=== PATIENT | female | born 1985 | race Caucasian/White ===

== ENCOUNTER 2019-01-23 05:32 | Emergency (ER) | payer SELFPAY ==
[2019-01-23 05:40] VITALS: BMI 30.9
[2019-01-23] MEDS ORDERED: SODIUM CHLORIDE 1,000 ML IV ONE ×2 (05:55→06:41)
--- NOTE | 2019-01-23 05:56 | PDOC ---
History of Present Illness - General Chief Complaint: Pain Stated Complaint: FEVER X 4 DAYS, THROAT,EAR PAIN, BODY ACHES Time Seen by Provider: 01/23/19 05:43 History Source: Patient Exam Limitations: No Limitations - History of Present Illness Initial Comments: 01/23/19 05:56 This is a 33-year-old female who comes in complaining of 4 days of headache, body aches, fever and not feeling well. Patient took 2 extra strength bear prior to coming in and here in the emergency room was sweating profusely but afebrile. Patient does spend a fair amount timeout side in a park with her son. Patient denies any cough congestion, nausea, vomiting or diarrhea. Patient is otherwise healthy. Allergies: as per nursing notes Past Medical History: none Social history: Lives with family. No smoking. No alcohol. No illicit drugs. Surgical history: None General: + fevers or chills, no weakness, no weight loss HEENT: No change in vision. No sore throat,. No ear pain CardioVascular: no chest discomfort. No shortness of breath Respiratory:No cough, or wheezing. Gastrointestinal: no nausea, vomiting, diarrhea or constipation, No rectal bleeding Genitourinary: No dysuria, hematuria, or frequency Musculoskeletal: No joint or muscle pain or swelling, + body aches. Neurologic: + headache, no vertigo, dizziness or loss of consciousness Psychiatric: nor depression Skin: No rashes or easy bruising Endocrine: no increased thirst or abnormal weight change Allergic: no skin or latex allergy All other systems reviewed and normal Exam: General: Well-nourished well-developed individual, no acute distress HEENT: Throat: Normal, tonsils normal, no erythema or exudate Neck: Supple, no meningeal signs, no lymphadenopathy Eyes::Pupils equal reactive and round, extraocular motion intact Chest: Nontender to palpation Cardiac: S1-S2 normal, regular rate and rhythm, no murmurs rubs or gallops Respiratory: Lungs clear to auscultation bilateral Abdomen: Soft, nondistended, normal bowel sounds, there is no tenderness on palpation diffusely Extremities: Warm, dry, no cyanosis, clubbing, or edema Skin: No rashes Neuro: Alert and oriented x3, CN II - XII intact, nonfocal exam with normal strength, normal sensation, normal reflexes, normal gait, Psych: Normal mood and affect Assessment and plan: This is a 33-year-old female who comes in complaining of body aches headache and fever. Patient workup initiated including CBC, comp, blood cultures, urine, urine cultures, Lyme and large ecchymosis titers. Patient has no meningeal signs on my exam so LP not done We'll give patient a liter fluid 07:00 Care of this patient was transferred to Dr. Do at 7 AM. Case discussed in detail with oncoming Emergency Physician including history, physical exam and ancillary studies. Oncoming Emergency Physician has assumed care for the patient and will complete the evaluation and treatment. Patient is aware of the plan. Pt is clinically unchanged and stable. 01/23/19 20:48 Past History - Past Medical History Allergies/Adverse Reactions: Allergies Allergy/AdvReac Type Severity Reaction Status Date / Time No Known Allergies Allergy Verified 01/23/19 05:37 Home Medications: Ambulatory Orders Cephalexin Monohydrate [Keflex -] 500 mg PO BID #14 capsule 01/23/19 COPD: No - Suicide/Smoking/Psychosocial Hx Smoking History: Never smoked Have you smoked in the past 12 months: No Information on smoking cessation initiated: No Hx Alcohol Use: No Drug/Substance Use Hx: No Substance Use Type: None *Physical Exam - Vital Signs Last Vital Signs Temp Pulse Resp BP Pulse Ox 98.5 F 94 H 16 92/57 L 100 01/23/19 05:38 01/23/19 05:38 01/23/19 05:38 01/23/19 05:38 01/23/19 05:38 ED Treatment Course - LABORATORY CBC & Chemistry Diagram: 01/23/19 06:42 01/23/19 06:42 *DC/Admit/Observation/Transfer Diagnosis at time of Disposition: UTI (urinary tract infection) - Discharge Dispostion Disposition: HOME Condition at time of disposition: Stable - Prescriptions Prescriptions: Cephalexin Monohydrate [Keflex -] 500 mg PO BID #14 capsule - Referrals - Patient Instructions Printed Discharge Instructions: DI for Urinary Tract Infection (UTI) Additional Instructions: You have been given a copy of your workup including your blood work, urine work and CAT scan of the head. Your urine demonstrates that you have a urinary tract infection. At this time, I have a low suspicion for meningitis. I suspect her symptoms are secondary to urinary tract infection. However, if you have worsening or uncontrollable headaches and persistent high fevers despite the antibiotics, please call your doctor or return to the ER. It may take several days before you see improvement in your symptoms. It is very important that you complete your antibiotics. You will take 500 mg of cephalexin every 12 hours for one week. Drink plenty of water. Take 600 mg of Motrin every 6 hours as needed for fever. Your blood work also demonstrates some elevated liver function tests. This may potentially be the result of a fatty liver. Please bring these copy of the results to your doctor for further management. - Post Discharge Activity
[2019-01-23] MEDS ORDERED: KETOROLAC TROMETHAMINE 30 MG/1 ML VIAL IVPUSH ONE (06:39)
[2019-01-23] MEDS ORDERED: ACETAMINOPHEN 1000 MG/100 ML VIAL (NON FORMULARY) IVPB ONE (07:41)
--- NOTE | 2019-01-23 07:42 | PDOC ---
*Physical Exam - Vital Signs Last Vital Signs Temp Pulse Resp BP Pulse Ox 98.5 F 84 16 101/59 L 100 01/23/19 05:38 01/23/19 06:42 01/23/19 06:42 01/23/19 06:42 01/23/19 06:42 ED Treatment Course - LABORATORY CBC & Chemistry Diagram: 01/23/19 06:42 01/23/19 06:42 - RADIOLOGY Radiology Studies Ordered: Category Date Time Status HEAD CT WITHOUT CONTRAST [CT] Stat CT Scan 01/23/19 07:41 Ordered - Medications Given in the ED: ED Medications Discontinued Medications Generic Name Dose Route Start Last Admin Trade Name Freq PRN Reason Stop Dose Admin Sodium Chloride 1,000 mls @ 1,000 mls/hr 01/23/19 05:55 01/23/19 06:02 Normal Saline - IV 01/23/19 06:54 1,000 mls/hr .Q1H ONE Administration Sodium Chloride 1,000 mls @ 1,000 mls/hr 01/23/19 06:41 01/23/19 06:44 Normal Saline - IV 01/23/19 07:40 1,000 mls/hr .Q1H ONE Administration Medical Decision Making - Medical Decision Making 01/23/19 09:34 Sign-out received from outgoing Emergency Physician Dr. Chaudhry Pt interviewed and examined Ancillary studies reviewed Case discussed in detail with oncoming Emergency Physician including history, physical exam and ancillary studies. Vital Signs Temp Pulse Resp BP Pulse Ox 98.5 F 84 16 101/59 L 100 01/23/19 05:38 01/23/19 06:42 01/23/19 06:42 01/23/19 06:42 01/23/19 06:42 This is a 33-year-old female patient with prior history of urinary tract infection signed out to me for 4 days of fever Tmax 102, body aches, tension- like headache particularly worse the posterior and occasional neck and back pain. The patient has also significant outdoor exposure as she is often in the park with her family. The patient expresses concerns for potential meningitis. She states that she had a friend who had from meningitis earlier when she was younger. When I had examined and spoke to the patient. The patient had no neck stiffness or other clinical symptoms of meningitis at this time. I did discuss that the symptoms could potentially represent meningitis, however, I have low clinical suspicion. Patient reports also some urinary retention. Denies flank pain. Patient is neurologically intact and in no distress. She is ambulatory without difficulty. The patient has no headache at this time after treatment with aspirin at home and Tylenol by me in the ER. Given the relief of headache and no fever, I advised patient that I suspected that she low likelihood for meningitis area however, I did state that if the symptoms worsen, that we should potentially think of a lumbar puncture. However, at this time, the risks of and lumbar puncture would outweigh the benefit. After lengthy discussion with the patient, with shared decision-making, we both agree that we would defer lumbar puncture. When the results were reviewed. He had noted that the patient had elevated LFTs which I suspect is secondary to fatty liver disease. Patient has no right upper quadrant or abdominal pain. No nausea or vomiting. I am not concerned for GI pathology at this time. However, patient does have 3+ leukocyte and WBC 119 the urine as well as bacteria in the urine. Given her urinary retention and her fevers, I suspect that the urinary tract infection is the likely source of her symptoms. I will treat with cephalexin 500 mg every 12 hours for one week. I advised patient that we will call her with the culture and tick-borne results. The patient feels comfortable with the plan and she would like to go home with cephalexin and follow up with PMD. I discussed the physical exam findings, ancillary test results and final diagnoses with the patient. I answered all of the patient's questions. The patient was satisfied with the care received and felt comfortable with the discharge plan and treatment plan. The patient will call their primary care physician within 24 hours to arrange follow-up and will return to the Emergency Department with any new, persistant or worsening symptoms. *DC/Admit/Observation/Transfer Diagnosis at time of Disposition: UTI (urinary tract infection) Qualifiers: Urinary tract infection type: acute cystitis Hematuria presence: without hematuria Qualified Code(s): N30.00 - Acute cystitis without hematuria - Discharge Dispostion Disposition: HOME Condition at time of disposition: Stable Decision to Admit order: No - Prescriptions Prescriptions: Cephalexin Monohydrate [Keflex -] 500 mg PO BID #14 capsule - Referrals - Patient Instructions Printed Discharge Instructions: DI for Urinary Tract Infection (UTI) Additional Instructions: You have been given a copy of your workup including your blood work, urine work and CAT scan of the head. Your urine demonstrates that you have a urinary tract infection. At this time, I have a low suspicion for meningitis. I suspect her symptoms are secondary to urinary tract infection. However, if you have worsening or uncontrollable headaches and persistent high fevers despite the antibiotics, please call your doctor or return to the ER. It may take several days before you see improvement in your symptoms. It is very important that you complete your antibiotics. You will take 500 mg of cephalexin every 12 hours for one week. Drink plenty of water. Take 600 mg of Motrin every 6 hours as needed for fever. Your blood work also demonstrates some elevated liver function tests. This may potentially be the result of a fatty liver. Please bring these copy of the results to your doctor for further management. - Post Discharge Activity
[2019-01-23 07:48] LABS: BASO % 0.7 % (0-2.0); EOS % 0.2 % (0-4.5); HEMATOCRIT 41.2 % (32.4-45.2); HEMOGLOBIN 14.1 GM/dL (10.7-15.3); LYMPH % 41.8 % (8-40); MCH 30.4 pg (25.7-33.7); MCHC 34.2 g/dl (32.0-36.0); MEAN CELL VOLUME 88.9 fl (80-96); MEAN PLT VOLUME 9.7 fl (7.5-11.1); MONO % 5.8 % (3.8-10.2); NEUT % 51.5 % (42.8-82.8); PLATELET COUNT 201 K/MM3 (134-434); RBC 4.63 M/mm3 (3.60-5.2); RDW 12.6 % (11.6-15.6); WHITE BLOOD COUNT 4.2 K/mm3 (4.0-10.0)
[2019-01-23 08:11] LABS: ALBUMIN 3.7 g/dl (3.4-5.0); BILIRUBIN,TOTAL 0.6 mg/dL (0.2-1); BLOOD UREA NITROGEN 5.2 mg/dL (7-18); CALCIUM 8.9 mg/dL (8.5-10.1); CREATININE 0.9 mg/dL (0.55-1.3); POTASSIUM 3.6 mmol/L (3.5-5.1); TOT PROT 7.1 g/dl (6.4-8.2)
[2019-01-23] MEDS ORDERED: ACETAMINOPHEN INJECTION 100 ML IVPB ONE (08:11)
[2019-01-23 09:03] LABS: EPI CELLS 23.4 /HPF (0-5/HPF); HYALINE CASTS 137 /lpf (0-8); PH,URINE 7.5 (5.0-8.0); URINE APPEARANCE CLOUDY; URINE BACTERIA 578.9 /hpf (NEGATIVE); URINE BILIRUBIN 1+ (NEGATIVE); URINE COLOR DK YELLOW; URINE GLUCOSE (UA) NEGATIVE (NEGATIVE); URINE KETONE 1+ (NEGATIVE); URINE LEUK ESTERASE 3+ (NEGATIVE); URINE NITRITE NEGATIVE (NEGATIVE); URINE PROTEIN 1+ (NEGATIVE); URINE RBC 4 /hpf (0-4); URINE WBC 119 /hpf (0-5)
[2019-01-23] MEDS ORDERED: CEPHALEXIN MONOHYDRATE 500 MG CAPSULE (UD) PO ONE (09:24)
[2019-01-23] MEDS ORDERED: CEPHALEXIN MONOHYDRATE 500 MG CAPSULE (UD) ONE (09:27)
[2019-01-23 09:38] VITALS: BP 93/70; PULSE 72; TEMP 97.6
[2019-01-23 12:53] LABS: ANISOCYTOSIS 1+; MACROCYTOSIS 0; PLATELET ESTIMATE NORMAL
--- NOTE | 2019-01-25 13:09 | PDOC ---
Patient Follow-up (Call Back) - Post ED Follow - Up Condition at time of discharge: Stable Disposition at time of original discharge: HOME - Disposition Additional Instructions/Notes: pt here c/o itchy rash started after taking kelfex prescribed for uti. will give her another prescription for bactrim. offered to register patient for meds benadryl. will take benadryl at home. no tongue or lip swelling. will also give prescription for steroid for 3 days to help . pt told she is likley allergic to keflex. encouraged to return for worsening itching swelling, tongue or lip swelling and take benadryl 25 mg every 6 hrs. also told to return for persistant fever, dysuria or any concerns.
== END 2019-01-23 09:35 | disposition home or self-care (01) ==
LOC: FER 05:32
PROC: 3E033NZ Introduction of Analgesics, Hypnotics, Sedatives into Peripheral Vein, Percutaneous Approach (ICD-10-PCS; principal; 2019-01-23)
PROC: 3E0337Z Introduction of Electrolytic and Water Balance Substance into Peripheral Vein, Percutaneous Approach (ICD-10-PCS; 2019-01-23)
DX: N30.00 Acute cystitis without hematuria (principal)
CPT/HCPCS: 36415; 70450-TC; 80053; 81003; 81025; 85025; 86618; 86666; 87040; 87077; 87086; 99282-25; J0131; J7030

== ENCOUNTER 2019-01-27 18:40 | Emergency (ER) | payer SELFPAY ==
[2019-01-27 19:02] VITALS: BP 119/68; PULSE 89; TEMP 99; BMI 30.9
--- NOTE | 2019-01-27 19:36 | PDOC ---
*Physical Exam - Vital Signs Last Vital Signs Temp Pulse Resp BP Pulse Ox 99 F 89 20 119/68 99 01/27/19 18:41 01/27/19 18:41 01/27/19 18:41 01/27/19 18:41 01/27/19 18:41 - Physical Exam General Appearance: Yes: Moderate Distress (constantly itching hands, arms, chest) Respiratory/Chest: positive: Lungs Clear, Normal Breath Sounds. negative: Respiratory Distress Cardiovascular: positive: Regular Rhythm, Regular Rate, S1, S2. negative: Murmur Integumentary: positive: Warm, Other (Red, blotchy, excoriated skin) Neurologic: positive: Alert, Responsive. negative: Confused, Disoriented Progress Note - Progress Note Progress Note: Carmelina Rowe is a 33y F presenting with itching. 4d ago she presented to the ED with 4d of itching and fevers that was attributed to a UTI and prescribed cephalexin. Her LFTs were also mildly elevated which was attributed to fatty liver disease. Urine culture grew Lactobacillus, pending tick panel. 2 days after, she presented to the ED for continued itching, where she was switched to bacrim and started on benadryl. She continues to have continuous itching, generalized weakness, and intermittent generalized rashes. Denies ever taking cephalexin or bactrim before. Denies change in frequency, pain or blood with urination. Denies IV drug use. Medical Decision Making - Critical Care Time Total Critical Care Time (minutes): 30 Critical Care Statement: The care of this patient involved high complexity decision making to prevent further life threatening deterioration of the patient 's condition and/or to evaluate & treat vital organ system(s) failure or risk of failure. - Medical Decision Making 01/27/19 19:48 Given decadron for itching, zofran for nausea Carmelina Rowe is a 33yo F with PMHx UTIs presenting with continued itching. Itching likely an allergic reaction to bactrim/sulfa containing medication. Patient has been adequately treated for UTI with 5 day course of antibiotics, which will be discontinued. Discharged with instructions to take prednisone then medrol dose nicole to attenuate allergic reaction. *DC/Admit/Observation/Transfer Diagnosis at time of Disposition: Allergic reaction - Discharge Dispostion Disposition: HOME Condition at time of disposition: Improved Decision to Admit order: No - Prescriptions Prescriptions: Methylprednisolone [Medrol Dose Nicole] 4 mg PO ASDIR #21 tablet - Referrals - Patient Instructions Printed Discharge Instructions: DI for Adverse Drug Reaction -- Allergic Additional Instructions: Drink plenty of fluids Take prednisone for next 3 days then medrol dose nicole. Come back to the emergency department if continue to have itching, shortness of breath, or vomiting - Post Discharge Activity
[2019-01-27] MEDS ORDERED: ONDANSETRON 4 MG TABLET PO ONE (19:45)
[2019-01-27] MEDS ORDERED: DEXAMETHASONE SOD PHOSPHATE 10 MG/1 ML VIAL IM ONE (19:46)
[2019-01-27] MEDS ORDERED: DEXAMETHASONE SOD PHOSPHATE 10 MG/1 ML VIAL ONE (19:47)
[2019-01-27] MEDS ORDERED: ONDANSETRON *ODT* 4 MG TABLET ONE (19:48)
[2019-01-27] MEDS ORDERED: ONDANSETRON *ODT* 4 MG TABLET SL ONE (19:55)
--- NOTE | 2019-01-27 20:42 | PDOC ---
Documentation entered by Sonja Castle SCRIBE, acting as scribe for Robin Kim MD. Robin Kim MD: This documentation has been prepared by the Tin cardoza Sammi, SCRIBE, under my direction and personally reviewed by me in its entirety. I confirm that the documentation accurately reflects all work, treatment, procedures, and medical decision making performed by me. Attending Attestation - Resident Resident Name: Alexis Perez - [facility] HPI: 01/27/19 19:51 The patient is a 33 year old female who presents to the emergency department for evaluation of an allergic reaction. The patient was evaluated in our ED on where she was treated for a UTI and given keflex and prednisone. She notes she experienced a rash on keflex and was prescribed bactrim in place. The patient returns to the ED complaining of itchiness to the palms of her hands and feet, neck and legs accompanied by a rash since taking keflex. Denies taking june, claritin, or other OTC allergy medication. Patient notes UTI symptoms have resolved for the most part but that she continues to feel fatigue and weak with minor chores at home. PAST MEDICAL HISTORY: no significant history PAST SURGICAL HISTORY: no significant history FAMILY HISTORY: mother has history of rheumatoid arthritis and lupus SOCIAL HISTORY: Pt lives with family and is employed. MEDICATIONS: reviewed ALLERGIES: As per nursing notes Adult ROS General: No fevers or chills, no weakness, no weight loss HEENT: No change in vision. No sore throat,. No ear pain CardioVascular: No chest pain or shortness of breath Respiratory:No cough, or wheezing. Gastrointestinal: no nausea, vomiting, diarrhea or constipation, No rectal bleeding Genitourinary: No dysuria, hematuria, or frequency Musculoskeletal: No joint or muscle pain or swelling Neurologic: No headache, vertigo, dizziness or loss of consciousness Psychiatric: nor depression (Skin: No rashes or easy bruising Endocrine: no increased thirst or abnormal weight change Allergic: (+) rash (+)itching to palms, extremities, and neck All other systems reviewed and normal Adult exam GENERAL: The patient is awake, alert, and fully oriented, in no acute distress. HEAD: Normal with no signs of trauma. EYES: Pupils equal, round and reactive to light, extraocular movements intact, sclera anicteric, conjunctiva clear. EXTREMITIES: Normal range of motion, no edema. NEUROLOGICAL: Normal speech, normal gait. PSYCH: Normal mood, normal affect. SKIN: (+)erythema of extremities, neck, palms, and feet, with some raised areas consistent with hives - Physicial Exam PE: 01/27/19 20:43 see HPI note - Medical Decision Making 01/27/19 20:41 Assessment and plan: This is a 33-year-old female who comes in complaining of itching/ALLERGIC reaction. It is unclear as to the etiology of the ALLERGIC reaction most likely has some antibiotic she was started on. Patient was started on the antibiotic for a urinary tract infection and has taken an antibiotic for 5 days even though it was switched to a different antibiotic after 2 days. Total amount of time on an antibiotic is 5 days. Since it was for a urinary tract infection told patient to stop the antibiotic and patient given a short course of steroids as well as I recommended that she follow-up with her primary care doctor to rule out autoimmune type of causes and she still is having some body aches and fatigue.
== END 2019-01-27 20:14 | disposition home or self-care (01) ==
LOC: FER 18:40
PROC: 3E023GC Introduction of Other Therapeutic Substance into Muscle, Percutaneous Approach (ICD-10-PCS; principal; 2019-01-27)
DX: T78.40XA Allergy, unspecified, initial encounter (principal)
CPT/HCPCS: 99281-25; J1100; Q0162

== ENCOUNTER 2021-08-30 17:03 | Emergency (ER) | payer OTHER ==
[2021-08-30 17:24] VITALS: TEMP 99.3; BMI 34.1
[2021-08-30 18:18] LABS: ALBUMIN 3.8 g/dl (3.4-5.0); BILIRUBIN,TOTAL 0.4 mg/dl (0.2-1); CALCIUM 9.1 mg/dl (8.5-10); CREATININE 0.8 mg/dl (0.55-1.3); TOT PROT 6.2 g/dl (6.4-8.2)
[2021-08-30] MEDS ORDERED: ACETAMINOPHEN 1000 MG/100 ML BAG IVPB ONE ×2 (18:22→18:23)
[2021-08-30] MEDS ORDERED: SODIUM CHLORIDE 0.9% 1000 ML INFUS.BAG IV ONE (18:22)
[2021-08-30] MEDS ORDERED: SODIUM CHLORIDE 0.9% 500 ML INFUS.BAG IV ONE (18:23)
[2021-08-30 18:26] LABS: INR 1.05 (0.83-1.09); PROTHROMBIN TIME (PATIENT) 12.1 SEC (9.7-13.0)
[2021-08-30 18:29] LABS: ACTIVATED PTT 32.8 SECONDS (25.2-36.5)
[2021-08-30] MEDS ORDERED: ACETAMINOPHEN INJECTION 100 ML IVPB ONE (18:48)
[2021-08-30 19:16] LABS: BASO % 0.3 % (0-2.0); EOS % 3.8 % (0-4.5); HEMATOCRIT 36.2 % (32.4-45.2); LYMPH % 25.7 % (8-40); MCH 29.5 pg (25.7-33.7); MCHC 33.3 g/dl (32.0-36.0); MEAN CELL VOLUME 88.8 fl (80-96); MEAN PLT VOLUME 9.5 fl (7.5-11.1); MONO % 5.7 % (3.8-10.2); NEUT % 64.5 % (42.8-82.8); PLATELET COUNT 353 10^3/uL (134-434); RBC 4.07 M/mm3 (3.60-5.2); WHITE BLOOD COUNT 8.1 K/mm3 (4.0-10.0)
[2021-08-30 20:07] VITALS: BP 108/68; PULSE 75
== END 2021-08-30 20:26 | disposition home or self-care (01) ==
LOC: FER 17:03
PROC: 3E0333Z Introduction of Anti-inflammatory into Peripheral Vein, Percutaneous Approach (ICD-10-PCS; principal; 2021-08-30)
DX: N93.9 Abnormal uterine and vaginal bleeding, unspecified (principal)
CPT/HCPCS: 36415; 76830-TC; 80053; 84703; 85025; 85610; 85730; 86850; 86900; 86901; 96374; 99284-25; J0131

== ENCOUNTER 2023-04-09 12:40 | Emergency (ER) | payer OTHER ==
[2023-04-09 13:00] VITALS: BP 113/71; PULSE 86; RESP 14; TEMP 97.8; BMI 29.2
[2023-04-09 14:36] LABS: HEMATOCRIT 35.1 % (32.4-45.2); HEMOGLOBIN 11.9 G/dL (10.7-15.3); MCH 29.4 pg (25.7-33.7); MCHC 33.9 g/dl (32.0-36.0); MEAN CELL VOLUME 86.6 fl (80-96); MEAN PLT VOLUME 9.3 fl (7.5-11.1); PLATELET COUNT 396.5 10^3/uL (134-434); RBC 4.05 10^6/uL (3.60-5.2); WHITE BLOOD COUNT 7.3 10^3/uL (4.0-10.8)
[2023-04-09 15:02] LABS: ALBUMIN 4.2 g/dl (3.4-5.0); CREATININE 0.7 mg/dl (0.6-1.3); POTASSIUM 3.7 mmol/L (3.5-5.1); SGOT/AST 11.4 U/L (15-37); SGPT/ALT 9.4 U/L (7-52); TOT PROT 6.5 g/dl (6.4-8.2)
[2023-04-09 16:06] LABS: BILIRUBIN,TOTAL 0.2 mg/dL (0.2-1)
== END 2023-04-09 15:55 | disposition home or self-care (01) ==
LOC: FER 12:40
DX: R10.30 Lower abdominal pain, unspecified (principal); R53.1 Weakness; R11.0 Nausea; N89.8 Other specified noninflammatory disorders of vagina; R68.83 Chills (without fever); R42 Dizziness and giddiness; R63.0 Anorexia
CPT/HCPCS: 36415; 76830-TC; 80053; 81003; 81025; 85027; 87086; 87491; 87591; 87661; 99284-25

== ENCOUNTER 2023-06-13 11:51 | Emergency (ER) | payer OTHER ==
[2023-06-13] MEDS ORDERED: LORazepam 2 MG TABLET PO ONE (11:55)
[2023-06-13] MEDS ORDERED: LORazepam 0.5 MG TABLET ONE (12:13)
[2023-06-13 13:22] VITALS: BP 126/82; PULSE 76; RESP 18; TEMP 99.4; BMI 29.1
== END 2023-06-13 13:38 | disposition home or self-care (01) ==
LOC: FER 11:51
DX: F41.0 Panic disorder [episodic paroxysmal anxiety] (principal); R00.2 Palpitations; R07.9 Chest pain, unspecified
CPT/HCPCS: 99283-25